=== PATIENT | male | born 1985 | race Caucasian/White ===

== ENCOUNTER 2024-04-28 21:11 | Emergency (ER) | payer OTHER ==
[~2024-04-28] VITALS: Ht 175.3 cm; Wt 119.7 kg
[2024-04-28 21:25] LABS: BASOPHILS 0.8 % (0-2); EOSINOPHILS 1.9 % (0-6); HEMATOCRIT 42.8 % (35.0-50.0); HEMOGLOBIN 14.5 g/dL (12.0-18.0); LYMPHOCYTES 34.3 % (24-44); MCH 28.1 (27-36); MCV 82.6 fl (81-99); MONOCYTES 7.4 % (0-12); NEUTROPHILS 55.6 % (39-80); PLATELET COUNT 287 K/uL (140-440); RBC 5.18 M/ul (4.3-5.7); RDW 14.3 (10.5-15.0)
[2024-04-28 21:41] LABS: INR 0.97 (0.80-1.30); PROTIME 12.8 Sec (11.2-14.2)
[2024-04-28 21:48] LABS: ALBUMIN 4.1 g/dL (3.4-5.0); ALBUMIN/GLOBULIN RATIO 1.28 (1.1-2.4); ANION GAP 10.1 (7-21); BILIRUBIN, TOTAL 0.8 ng/dL (0.2-1.0); BUN/CREATININE RATIO 11.65 (6.0-28.6); CALCIUM 9.3 mg/dL (8.5-10.1); CREATININE, SERUM 1.03 mg/dL (0.70-1.30); POTASSIUM 4.1 mmol/L (3.5-5.1); PROTEIN, TOTAL 7.3 g/dL (6.4-8.2)
[2024-04-28 23:20] VITALS: BP 104/60
--- NOTE | 2024-04-29 13:34 | EKG ---
[facility] [address] [facility] [place], [place] [address] Signed Normal sinus rhythm Normal ECG No previous ECGs available Confirmed by Aleks Portillo MD ([id number]) on 04/29/2024 1:34:24 PM Electronically Signed By: ALEKS PORTILLO MD 04/29/24 1334 PATIENT NAME: LUZ MARIA ALCANTAR Electrocardiogram DATE OF : 87 PHYSICIAN: ALEKS PORTILLO MD REPORT #: [id number] REPORT IS CONFIDENTIAL AND NOT TO BE RELEASED WITHOUT AUTHORIZATION
== END 2024-04-28 23:20 | disposition home or self-care (01) ==
LOC: ED 21:11
PROVIDERS: Family Medicine
DX: R07.89 Other chest pain (principal); Z88.0 Allergy status to penicillin
CPT/HCPCS: 36415; 71045; 80053; 83735; 83880; 84484; 85025; 85379; 85610; 93005; 93010; 99285-25

== ENCOUNTER 2024-06-23 15:34 | Emergency (ER) | payer OTHER ==
[~2024-06-23] VITALS: Ht 175.3 cm; Wt 88.0 kg
[2024-06-23] MEDS ORDERED: LASIX20 MG PO (15:44)
[2024-06-23 15:56] LABS: BASOPHILS 1.1 % (0-2); EOSINOPHILS 1.3 % (0-6); HEMATOCRIT 43.2 % (35.0-50.0); HEMOGLOBIN 14.7 g/dL (12.0-18.0); LYMPHOCYTES 36.8 % (24-44); MCH 27.2 (27-36); MCHC 34.2 g/dl (30-36); MCV 79.6 fl (81-99); MONOCYTES 6.9 % (0-12); NEUTROPHILS 53.9 % (39-80); PLATELET COUNT 283 K/uL (140-440); RBC 5.42 M/ul (4.3-5.7)
[2024-06-23 16:27] LABS: ALBUMIN 4.3 g/dL (3.4-5.0); ALBUMIN/GLOBULIN RATIO 1.48 (1.1-2.4); ANION GAP 9.7 (7-21); BILIRUBIN, TOTAL 1.4 mg/dL (0.2-1.0); BUN/CREATININE RATIO 13.13 (6.0-28.6); CALCIUM 9.1 mg/dL (8.5-10.1); CREATININE, SERUM 0.99 mg/dL (0.70-1.30); MAGNESIUM 2.1 mg/dL (1.8-2.4); POTASSIUM 3.7 mmol/L (3.5-5.1); PROTEIN, TOTAL 7.2 g/dL (6.4-8.2)
[2024-06-23 17:50] VITALS: BP 128/67
--- NOTE | 2024-06-23 19:23 | EKG ---
[facility] [address] [facility] [place], [place] [address] Signed Normal sinus rhythm Normal ECG When compared with ECG of 28-Apr-2024 21:14:28 No significant change was found Confirmed by Adan Portillo MD ([id number]) on 06/23/2024 7:23:12 PM Electronically Signed By: ADAN PORTILLO MD 06/23/241922 PATIENT NAME: LUZ MARIA ALCANTAR CIRA Electrocardiogram DATE OF : 87 PHYSICIAN: ADAN PORTILLO MD REPORT #: [id number] REPORT IS CONFIDENTIAL AND NOT TO BE RELEASED WITHOUT AUTHORIZATION
== END 2024-06-23 17:51 | disposition home or self-care (01) ==
LOC: ED 15:34
PROVIDERS: Emergency Medicine
DX: R60.0 Localized edema (principal); K21.9 Gastro-esophageal reflux disease without esophagitis; Z88.0 Allergy status to penicillin
CPT/HCPCS: 36415; 71045; 80053; 83735; 83880; 84484; 85025; 93005; 93010; 99285-25

== ENCOUNTER 2024-07-01 13:49 | Emergency (ER) | payer OTHER ==
[~2024-07-01] VITALS: Ht 175.3 cm; Wt 126.0 kg
[~2024-07-01 13:49] MED LIST: LASIX20 MG PO
--- OUTSIDE RECORDS SUMMARY | 2024-07-01 13:56 | XMS ---
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 Young has no Care Guidelines for this patient. Sam VISIT COUNT (12 MO.) 3 [facility] [facility] TOTAL 3 NOTE: Visits indicate total known visits. ED/C VISIT TRACKING (12 MO.) [facility] COMPLAINT: - CHEST PAIN 06/23/2024 15:34 [facility] [place] TYPE: Emergency COMPLAINT: - CHEST PAIN DIAGNOSES: - Allergy status to penicillin - Chest pain, unspecified - Gastro-esophageal reflux disease without esophagitis - Localized edema 04/28/2024 21:11 [facility] [place] TYPE: Emergency COMPLAINT: - CHEST PAIN DIAGNOSES: - Allergy status to penicillin - Chest pain, unspecified - Other chest pain INPATIENT VISIT TRACKING (12 MO.) No inpatient visits to display in this time frame [email or web address]
[2024-07-01 14:10] LABS: EOSINOPHILS 1.6 % (0-6); HEMATOCRIT 42.1 % (35.0-50.0); HEMOGLOBIN 14.8 g/dL (12.0-18.0); LYMPHOCYTES 36.1 % (24-44); MCH 28.1 (27-36); MCHC 35.2 g/dl (30-36); MCV 79.7 fl (81-99); MONOCYTES 5.9 % (0-12); NEUTROPHILS 55.4 % (39-80); PLATELET COUNT 279 K/uL (140-440); RBC 5.28 M/ul (4.3-5.7)
[2024-07-01] MEDS ORDERED: NITROGLYCERIN PACKET TOP ONE (14:30)
[2024-07-01 14:33] LABS: ALBUMIN 4.2 g/dL (3.4-5.0); ALBUMIN/GLOBULIN RATIO 1.45 (1.1-2.4); ANION GAP 12.5 (7-21); CALCIUM 9.3 mg/dL (8.5-10.1); POTASSIUM 3.5 mmol/L (3.5-5.1); PROTEIN, TOTAL 7.1 g/dL (6.4-8.2)
[2024-07-01 16:52] VITALS: BP 188/65
--- NOTE | 2024-07-01 21:37 | EKG ---
[facility] [address] [facility] [place] [address] Signed Normal sinus rhythm Right axis deviation Inferior infarct , age undetermined Abnormal ECG When compared with ECG of 23-JUN-2024 15:33, QRS axis shifted right Confirmed by Pamela Brito MD () on 07/01/2024 9:37:08 PM Electronically Signed By: PAMELA BRITO MD 07/01/24 2137 PATIENT NAME: KATHARINELUZ MARIA Electrocardiogram DATE OF : 87 PHYSICIAN: PAMELA BRITO MD REPORT #: [id number] REPORT IS CONFIDENTIAL AND NOT TO BE RELEASED WITHOUT AUTHORIZATION
== END 2024-07-01 16:54 | disposition other institution, planned readmission (95) ==
LOC: ED 13:49
PROVIDERS: Emergency Medicine
DX: R07.9 Chest pain, unspecified (principal); Z88.0 Allergy status to penicillin; Z79.899 Other long term (current) drug therapy
CPT/HCPCS: 36415; 71045; 80053; 83880; 84484; 85025; 93005; 93010; 99285-25